=== PATIENT | female | born 1975 ===

== ENCOUNTER 2017-05-18 09:21 | Outpatient (CLI) | payer OTHER ==
[~2017-05-18 09:21] MED LIST: NAPROXEN SODIU550 MG PO
[2017-05-20] MEDS ORDERED: PRILOSEC10 MG PO (09:29)
[2017-05-20] MEDS ORDERED: VITAMIN D5000 UNIT PO (09:30)
== END 2017-05-18 09:24 | disposition home or self-care (01) ==
LOC: RAD 09:21
DX: N84.0 Polyp of corpus uteri (principal); N92.0 Excessive and frequent menstruation with regular cycle

== ENCOUNTER 2017-05-18 09:31 | Outpatient (CLI) | payer OTHER ==
[2017-05-20] MEDS ORDERED: PRILOSEC10 MG PO (09:29)
[2017-05-20] MEDS ORDERED: VITAMIN D5000 UNIT PO (09:30)
== END 2017-05-18 09:51 | disposition home or self-care (01) ==
LOC: MAMO-SONO 09:31
DX: Z80.3 Family history of malignant neoplasm of breast (principal)

== ENCOUNTER 2017-05-24 05:50 | Day surgery (SDC) | payer OTHER ==
[~2017-05-24 05:50] MED LIST changes: +PRILOSEC10 MG PO; +VITAMIN D5000 UNIT PO
[2017-05-24] MEDS ORDERED: NAPROXEN SODIU550 M1 PO (10:47)
== END 2017-05-24 14:00 | disposition home or self-care (01) ==
LOC: CIR.AMB 05:50
DX: N84.0 Polyp of corpus uteri (principal); N92.0 Excessive and frequent menstruation with regular cycle

== ENCOUNTER 2018-07-13 10:14 | Outpatient (CLI) | payer OTHER ==
[~2018-07-13 10:14] MED LIST changes: +NAPROXEN SODIU550 M1 PO
== END 2018-07-13 10:21 | disposition home or self-care (01) ==
LOC: MAMO-SONO 10:14
DX: N84.0 Polyp of corpus uteri (principal); N85.01 Benign endometrial hyperplasia; N60.11 Diffuse cystic mastopathy of right breast; N60.12 Diffuse cystic mastopathy of left breast; Z12.31 Encounter for screening mammogram for malignant neoplasm of breast

== ENCOUNTER 2020-06-24 13:12 | Outpatient (CLI) | payer OTHER | END 2020-06-24 14:06 | disposition home or self-care (01) | LOC: MAMO-SONO 13:12 | PROVIDERS: ATTEND Specialist | DX: D24.1 Benign neoplasm of right breast (principal); D24.2 Benign neoplasm of left breast; Z12.31 Encounter for screening mammogram for malignant neoplasm of breast; N64.59 Other signs and symptoms in breast; N60.11 Diffuse cystic mastopathy of right breast; N60.12 Diffuse cystic mastopathy of left breast ==